=== PATIENT | male | born 1955 | race Caucasian/White ===

== ENCOUNTER 2016-12-29 10:21 | Emergency (ER) | payer OTHER ==
[~2016-12-29] VITALS: Ht 177.8 cm; Wt 97.7 kg
[~2016-12-29 10:21] MED LIST: LOP600 PO; OMEG-38 PO; OMEP20CA11 PO
[2016-12-29 10:24] VITALS: BP 139/68; PULSE 110; RESP 17; O2SAT 93
--- NOTE | 2016-12-29 10:42 | ED.REPORT ---
HPI-General Illness Date of Service Dec 29, 2016 ED Provider: Dr. Silvestre Pt is a generally healthy 61 y/o male w/ a hx of prostate CA s/p resection, presenting to the ED with his c/o shaking chills and fever (102 F) onset this morning. The patient had a prostatectomy on December [address] Castano and had his Contreras catheter removed 8 days ago. This morning he developed shaking chills and fever. He c/o associated mild dysuria which he believes is residual pain from the catheter removal, mild cough, diarrhea last week. Pt denies SELLERS, vomiting, abdominal pain, rash, chest pain. He started taking doses of Viagra at night recently by recommendation of his urologist as a post-surgical experimental protocol. Nursing Notes Stated Complaint: FEVER Chief Complaint: General Complaint Nursing Notes Reviewed: Yes Allergies: Uncoded Allergies: Bee Stings (Adverse Reaction, Severe, Nasal Congestion/Drainage, 09/13/15) Scheduled Gemfibrozil-Expunged Drug, Do Not Renew! (Lopid-Expunged Drug, Do Not Renew!) 600 Mg Tablet 800 MG PO BID [place]-3/Dha/Epa/Fish Oil (Fish Oil 1,000 mg Softgel) 1 Each Capsule 1 EACH PO DAILY Scheduled PRN Omeprazole (Omeprazole) 20 Mg Capsule.dr 20 MG PO DAILY PRN PRN PRN General Time Seen by MD: 10:42 Chief Complaint Fever Hx Obtained From: Patient Arrived By: Walk-in Sudden in Onset?: No Onset Occurred: 1 - 4 hours ago Symptom Duration: Since onset Severity: Current: No pain currently Severity: Maximum: No pain Recent Healthcare: Previous surgery Past Medical History Past Medical History Hyperlipidemia Diverticulosis without hx of diverticulitis Prostate CA s/p prostatectomy Past Surgical History Cholecystectomy Prostatectomy Umbilical hernia Smoking History Never Smoker Ambulatory Status Independent Review of Systems Full Review of Systems Constitutional: Reports: Chills, Fever Respiratory: Reports: Non-productive cough, Denies: Shortness of breath Cardiovascular: Denies: Chest pain, Dyspnea on exertion GI: Reports: Diarrhea, Denies: Abdominal pain, Nausea, Vomiting Male: Reports Dysuria Musculoskeletal: Denies: Neck pain Skin: Denies Rash Neurologic: Denies: Headache Complete sys rev & neg: except as marked. Physical Exam Vital Signs Vital Signs Date Time Temp Pulse Resp B/P Pulse Ox O2 Delivery O2 Flow Rate FiO2 12/29/16 13:40 37.1 89 16 109/55 96 Room Air 12/29/16 12:16 39.1 12/29/16 11:45 93 18 111/53 95 Room Air 12/29/16 10:24 39.4 110 17 139/68 93 Room Air Initial VS: Reviewed, Vital signs abnormal Head / Eyes: Atraumatic, Normocephalic, PERRL ENT: Mucous membranes moist, Conjunctiva normal, No scleral icterus Neck: Supple, Full range of motion Respiratory: Breath sounds normal, Clear to auscultation, No respiratory distress Extremities: Vascular intact, Neuro intact, No swelling Skin: Warm, Dry, No cyanosis Neurologic: Alert, Oriented, Nonfocal Psychiatric: Mood/affect normal, Behavior normal, Normal thought content General/Constitutional: Awake, Alert, No acute distress, Cooperative, Not toxic appearing Febrile Cardiovascular: Regular rhythm, Heart sounds NL, No gallop, No murmurs, No rubs , Cap refill not delayed Heart Rate / Rhythm: Positive: Tachycardia Abdomen: Atraumatic, Soft, No guarding, No rebound, No distention, No palpable mass Tenderness/Guarding/Rebound: Positive: Tender RLQ... (Mild) Interpretation & Diagnostics Lab Results Interpretation Result Diagram: 12/29/16 1050 12/29/16 1050 Test 12/29/16 10:50 12/29/16 12:08 White Blood Count 8.2th/mm3 (3.8-10.1) Red Blood Count 4.74mil/mm3 (4.40-5.80) Hemoglobin 13.8g/dL (13.8-17.2) Hematocrit 40.1% (41.0-50.0) Mean Corpuscular Volume 84.6fL (81-100) Mean Corpuscular Hemoglobin 29.1pg (27.0-35.0) Mean Corpuscular Hemoglobin Concent 34.4% (32.0-37.0) Red Cell Distribution Width 13.4% (12.3-15.4) Platelet Count 154bil/L (150-400) Neutrophils (%) (Auto) 89.7% (40-74) Lymphocytes (%) (Auto) 4.0% (14-46) Monocytes (%) (Auto) 5.9% (4-12) Eosinophils (%) (Auto) 0.1% (0-5) Basophils (%) (Auto) 0.1% (0-3) Sodium Level 135mEq/L (134-144) Potassium Level 4.4mEq/L (3.5-5.2) Chloride Level 98mEq/L (97-108) Carbon Dioxide Level 22mmol/L (18-29) Blood Urea Nitrogen 21mg/dL (8-27) Creatinine 1.13mg/dL (0.76-1.27) Estimat Glomerular Filtration Rate 70mL/min (>59) Glucose Level 162mg/dL (60-99) Lactic Acid Level 2.0mmol/L (0.4-2.0) Calcium Level 9.4mg/dL (8.5-10.1) Magnesium Level 1.6mg/dL (1.6-2.6) Total Bilirubin 0.9mg/dL (0.0-1.2) Aspartate Amino Transf (AST/SGOT) 22U/L (0-50) Alanine Aminotransferase (ALT/SGPT) 34U/L (0-44) Alkaline Phosphatase 67U/L (25-160) Total Protein 7.8g/dL (6.4-8.4) Albumin 4.2g/dL (3.4-5.0) Lipase 44U/L (13-60) Hold Houser Top Tube Received (Received) Urine Color Yellow (YELLOW) Urine Appearance Hazy (CLEAR,HAZY) Urine pH 5.0 (5.0-8.0) Urine Specific [place] 1.026 (1.003-1.035) Urine Protein 30mg/dL (NEG,TRACE) Urine Glucose (UA) Negativemg/dL (NEGATIVE) Urine Ketones Negativemg/dL (NEGATIVE) Urine Occult Blood Large (NEGATIVE) Urine Nitrite Negative (NEGATIVE) Urine Bilirubin Negative (NEGATIVE) Urine Urobilinogen Normalmg/dL (NORMAL) Urine Leukocyte Esterase Moderate (NEGATIVE) Urine RBC 11-50/hpf (0-2) Urine WBC >50/hpf (0-5) Urine Epithelial Cells Few/hpf (NONE-MOD) Urine Crystals None seen (NONE SEEN) Urine Bacteria None/hpf (NONE-FEW) Urine Hyaline Casts None/lpf (NONE) Urine Granular Casts None seen (NONE SEEN) Urine Waxy Casts None seen (NONE SEEN) Urine Red Blood Cell Casts None seen (NONE SEEN) Urine White Blood Cell Casts None seen (NONE SEEN) Urine Mucus None seen (None Seen) Urine Trichomonas None seen (NONE SEEN) Urine Yeast None (NONE SEEN) Urinalysis Comment None Urine Culture Reflexed Indicated X-Ray Chest Interpretation Chest Xray Interpretation: IMPRESSION: Right basilar minimal infiltrates. Otherwise negative chest radiograph. Dictated by: Best Saenz M.D. on 12/29/2016 at 12:02 Approved by: Best Saenz M.D. on 12/29/2016 at 12:04 View: Portable, 1 view Interpretation / Wet Read by: Interpret - Radiologist CT Abd / Pelvis Interpretation IMPRESSION: 1. New mostly low-density smooth margined mass in the pelvis at the right lateral aspect of the bladder. This finding may be related to the patient's recent prostatectomy. 2. Interval cholecystectomy with new low-density mass abutting the gallbladder fossa may represent postoperative change. Recommend MRI with and without contrast which may be performed on a nonemergent basis. Dictated by: Best Saenz M.D. on 12/29/2016 at 13:03 Approved by: Best Saenz M.D. on 12/29/2016 at 13:24 Study type: Abdominal CT IV contrast Interpretation / Wet Read by: Interpret - Radiologist Re-Eval/Medical Decision Med Decision/Clinical Course Sepsis by parameters with evidence of urinary tract infection and a right-sided mass near the bladder of unclear significance. Rocephin 2 g IV is given after urine and blood cultures were obtained. The patient is comfortable. After discussion with both [facility] urology and [facility] urology, the patient will be transferred to [facility]. It should be noted that the patient adamantly refuses ambulance transport and will go down by private vehicle. Time of Eval: 14:17 Re-Evaluation/Progress Note: Pt rechecked. He is feeling better now. Informed pt of need for transfer to for higher level of urological care and for proper continuity of care. He does not want to travel by ambulance because of the potential cost. His will drive him. Pt understands and agrees with plan for transfer. All questions addressed. Consultation #1: Referral / Consult Name: Ivy Luu MD Consulted With: Urology Call Returned at: 13:40 Pug Machine Operator: Agrees with eval, Agrees with plan Note: Doesn't appear need to be opened and drained. Recommends contact . Consultation #2: Consulted With: Urology Call Returned at: 14:09 Pug Machine Operator: Agrees with francesca, Agrees with plan Note: Spoke with [facility] urologist Dr. Cruz. Accepts admit at the . Counseled Regarding: Diagnosis, Lab results, Need for transfer Discharge & Departure Primary Impression: Sepsis Additional Impression: UTI (urinary tract infection) Disposition: Transfer, Acute Care Facility Transfer Requested at: 14:09 Receiving Hospital: Transfer Accepted: Yes Transfer Accepted at: 14:09 Transfer Reason: Higher level of care Spoke with: Specialty physician (Urologist) Patient Status: Stable Patient Informed: Yes Discharge Condition All VS Reviewed: Yes Condition: Stable Referrals: Levy Liriano MD (PCP) Cherelle Attestation Portions of this note were transcribed by Mckinley Hdez. I, Dr. Silvestre, personally performed the history, physical exam and medical decision-making; I reviewed and confirmed the accuracy of the information in the transcribed note. Signed by Cherelle Clemente, 12/29/16 - [phone] copies to: Levy Liriano MD, Timothy S DO Dec 29, 2016 10:42 MCKINLEY HDEZ Dec 29, 2016 11:11
[2016-12-29] MEDS ORDERED: 0.9% Sodium Chloride 1,000 ML IV SCH (11:10)
[2016-12-29] MEDS ORDERED: Ondansetron 2 mg/mL 2 mL Inj ONE (11:17)
[2016-12-29 11:19] LABS: BASOPHILS % (AUTO) 0.1 % (0-3); EOSINOPHILS % (AUTO) 0.1 % (0-5); MONOCYTES % (AUTO) 5.9 % (4-12); Mean Corpuscular Hemoglobin 29.1 pg (27.0-35.0); Mean Corpuscular Volume 84.6 fL (81-100); NEUTROPHILS % (AUTO) 89.7 % (40-74); Platelet Count 154 bil/L (150-400)
[2016-12-29 11:29] LABS: Magnesium 1.6 mg/dL (1.6-2.6)
[2016-12-29 11:45] VITALS: BP 111/53; PULSE 93; RESP 18; O2SAT 95
--- NOTE | 2016-12-29 12:11 | DRSVH ---
PROCEDURE: X-RAY CHEST ONE VIEW, PORTABLE ([id number]) INDICATIONS: fever TECHNIQUE: One view of the chest was acquired. COMPARISON: None. FINDINGS: Surgical changes and devices: None. Lungs and pleura: No pleural effusions or pneumothorax. Right basilar pulmonary opacities. Otherwise the lungs are clear. Mediastinum: Mediastinal contours appear normal. Heart size is normal. Bones and chest wall: No suspicious bony lesions. Overlying soft tissues appear unremarkable. IMPRESSION: Right basilar minimal infiltrates. Otherwise negative chest radiograph. Dictated by: Best Saenz M.D. on 12/29/2016 at 12:02 Approved by: Best Saenz M.D. on 12/29/2016 at 12:04
[2016-12-29 12:36] LABS: APPEARANCE,URINE HAZY (CLEAR,HAZY); COLOR,URINE YELLOW (YELLOW); OCCULT BLOOD,URINE LARGE (NEGATIVE); UROBILINOGEN,URINE NORMAL (NORMAL)
[2016-12-29] MEDS ORDERED: cefTRIAXone Inj 2,000 MG in Dextrose 5% Minibag Plus 50 ML IV ONE (13:05)
--- NOTE | 2016-12-29 13:26 | DRSVH ---
PROCEDURE: CT ABDOMEN AND PELVIS WITH CONTRAST ([id number]) INDICATIONS: fever, Right lower abd pain, recent prostatectomy TECHNIQUE: After the administration of intravenous contrast, 5 mm thick sections acquired from the diaphragm to the symphysis. 5 mm coronal and sagittal reformats were acquired. For radiation dose reduction, the following was used: automated exposure control, adjustment of mA and/or kV according to patient siz e. COMPARISON: None. FINDINGS: Image quality: Excellent. ABDOMEN: Lung bases: Lung bases are clear. Heart size is normal. Solid organs: Interval cholecystectomy. There is a 1.6 cm low-density mass in the left lobe of the li andria adjacent the gallbladder fossa. Otherwise the liver is normal. The pancreas, spleen, adrenal glan ds and kidneys are normal. Peritoneum and bowel: Colonic diverticulosis with no evidence of acute diverticulitis. There is scarr ing, postoperative or inflammatory change anterior to the bladder. Nodes and vessels: No retroperitoneal or mesenteric adenopathy by size criteria. Aorta and inferior vena cava are normal in size. Miscellaneous: No ventral hernias. PELVIS: Genitourinary: Bladder wall thickness is normal. Miscellaneous: No inguinal hernias or adenopathy. New lentiform smooth margined mass at the right a spect of the bladder measuring 4.4 x 2.8 x 2.1 CM with minimal peripheral high density. Bones: No suspicious bony lesions. No vertebral body compression fractures. IMPRESSION: 1. New mostly low-density smooth margined mass in the pelvis at the right lateral aspect of the bladd er. This finding may be related to the patient's recent prostatectomy. 2. Interval cholecystectomy with new low-density mass abutting the gallbladder fossa may represent po stoperative change. Recommend MRI with and without contrast which may be performed on a nonemergent b asis. Dictated by: Best Saenz M.D. on 12/29/2016 at 13:03 Approved by: Best Saenz M.D. on 12/29/2016 at 13:24
[2016-12-29 13:40] VITALS: BP 109/55; PULSE 89; RESP 16; O2SAT 96
[2016-12-29 15:12] VITALS: BP 106/53; RESP 18; O2SAT 96
[2016-12-29 15:17] VITALS: BP 106/53; PULSE 89; RESP 18; O2SAT 96
== END 2016-12-29 15:18 | disposition short-term general hospital (02) ==
LOC: SED 10:21
DX: A41.9 Sepsis, unspecified organism (principal); N39.0 Urinary tract infection, site not specified; R05 Cough; E78.5 Hyperlipidemia, unspecified; Z85.46 Personal history of malignant neoplasm of prostate; Z87.19 Personal history of other diseases of the digestive system; Z90.79 Acquired absence of other genital organ(s)
CPT/HCPCS: 36415; 71010; 74177; 80053; 81000; 83605; 83690; 83735; 85025; 87040; 87077; 87086; 87088; 87186; 96361; 96365; 96375; 99285; J0696; J2405; J7030; Q9967